=== PATIENT | male | born 1950 | race Caucasian/White ===

== ENCOUNTER 2016-12-30 11:48 | Day surgery (SDC) | payer BC, OTHER ==
[~2016-12-30 11:48] MED LIST: ACETAMINOPHEN 325 MG TAB PO PRN; ASPIRIN EC 325 MG TAB PO ONE; DIAZEPAM 5 MG TAB PO ONE; FAMOTIDINE 20 MG TAB PO ONE; NITROGLYCERIN 0.4 MG BTL SL PRN; NS 1,000 ML IV SCH; TEMAZEPAM 15 MG CAP PO PRN; diphenhydrAMINE 25 MG CAP PO ONE
[2016-12-30] MEDS ORDERED: FAMOTIDINE 20 MG TAB ONE (12:04)
[2016-12-30] MEDS ORDERED: ASPIRIN EC 325 MG TAB PO ONE (12:04)
[2016-12-30] MEDS ORDERED: DIAZEPAM 5 MG TAB ONE (12:04)
[2016-12-30] MEDS ORDERED: diphenhydrAMINE 25 MG CAP PO ONE (12:04)
--- NOTE | 2016-12-30 12:11 | CPEKG ---
Heart Rate: 68 RR Interval: 882 P-R Interval: 184 QRSD Interval: 82 QT Interval: 428 QTC Interval: 456 P [place]: 60 QRS [place]: 17 T Wave [place]: 8 EKG Severity - OTHERWISE NORMAL ECG - EKG Impression: SINUS RHYTHM EKG Impression: VENTRICULAR PREMATURE COMPLEX Electronically Signed By: William Mcrae 30-Dec-2016 18:35:45
[2016-12-30 12:25] LABS: % IMMATURE GRANULYOCYTES 0.3 % (0.0-1.1); ABSOLUTE IMMATURE GRANULOCYTES 0.03 10^3/uL (0.00-0.10); ADD DIFF? NO; ADD MORPH? NO; ADD SCAN? NO; ATYPICAL LYMPHOCYTE FLAG 40 (0-99); FRAGMENT RBC FLAG 0 (0-99); HEMATOCRIT 46.2 % (40.0-51.0); HEMOGLOBIN 15.6 g/dL (13.7-17.5); LEFT SHIFT FLG 0 (0-99); LIPEMIA HEMOLYSIS FLAG 90 (0-99); MEAN CELL HEMOGLOBIN 28.5 pg (27.9-34.1); MEAN CELL HEMOGLOBIN CONCENTR. 33.8 g/dL (32.4-36.7); MEAN CELL VOLUME 84.3 fL (81.5-99.8); MEAN PLATELET VOLUME 10.3 fL (8.7-11.7); PLATELET CLUMPS FLAG 30 (0-99); PLATELET COUNT 211 10^3/uL (150-400); RED BLOOD CELL COUNT 5.48 10^6/uL (4.40-6.38); RED CELL DISTRIBUTION WIDTH 14.8 % (11.5-15.2)
[2016-12-30 12:34] LABS: INR 0.99 (0.83-1.16)
[2016-12-30 12:35] LABS: APTT 26.9 SEC (23.0-38.0)
[2016-12-30 12:41] LABS: ALANINE AMINOTRANSFERASE 49 IU/L (21-72); ALBUMIN 4.5 g/dL (3.5-5.0); ALKALINE PHOSPHATASE 98 IU/L (38-126); ANION GAP 14 mEq/L (8-16); ASPARTATE AMINOTRANSFERASE 30 IU/L (17-59); BILIRUBIN,TOTAL 0.8 mg/dL (0.1-1.4); CALCIUM 9.7 mg/dL (8.5-10.4); CARBON DIOXIDE 20 mEq/l (22-31); CHLORIDE 108 mEq/L (97-110); CHOLESTEROL 132 mg/dL (140-220); CHOLESTEROL/HDL RATIO 2.93 RATIO (1.00-4.97); GLOMERULAR FILTRATION RATE > 60; GLUCOSE 89 mg/dL (70-100); HIGH DENSITY LIPOPROTEIN 45 mg/dL (40-65); LDL/HDL RATIO 1.69 RATIO (1.00-3.64); LOW DENSITY LIPOPROTEIN 76 mg/dL (80-100); MAGNESIUM 1.9 mg/dL (1.6-2.3); NON-HIGH DENSITY LIPOPROTEIN 87 mg/dL (90-129); POTASSIUM 4.5 mEq/L (3.5-5.2); SODIUM 142 mEq/L (134-144); TOTAL PROTEIN 7.4 g/dL (6.3-8.2); TRIGLYCERIDE 56 mg/dL (40-150); VERY LOW DENSITY LIPOPROTEINS 11 mg/dL (8-25)
[2016-12-30] MEDS ORDERED: fentaNYL 100 MCG/2 ML INJ ONE (12:55)
[2016-12-30] MEDS ORDERED: LIDOCAINE 1% 300 MG/30 ML SDV ONE (12:55)
[2016-12-30] MEDS ORDERED: MIDAZOLAM 2 MG/2 ML VIAL ONE (12:55)
[2016-12-30] MEDS ORDERED: HEPARIN 10,000 UNIT/10 ML MDV ONE (12:56)
[2016-12-30] MEDS ORDERED: VERAPAMIL 5 MG/2 ML VIAL ONE (12:56)
[2016-12-30] MEDS ORDERED: IOPAMIDOL (ISOVUE-370) 150 ML BTL IV ONE (12:56)
--- NOTE | 2016-12-30 13:01 | PDHPUP ---
History & Physical Update H&P update statement: This history and physical update is based on an assessment of the patient which was completed after admission or registration (within 24 hours), but prior to the surgery/procedure. H&P update: H&P reviewed & patient examined (Donis test on the right wrist normal at less than 5 sec.), no change in patient's condition since H&P completed
--- NOTE | 2016-12-30 13:02 | PDPROPOC ---
Sedation Plan of Care Sedation Plan of Care: vital signs stable, mental status noted, patient educated of risks, benefits, alternatives, patient can tolerate sedation ASA Classification: ASA 1 Planned drugs: fentanyl, midazolam Mallampati Score: Class 1 Mallampati Reference Image: Patient passed 3-3-2 rule?: Yes
[2016-12-30] MEDS ORDERED: ONDANSETRON 4 MG/2 ML VIAL IVP PRN (13:59)
[2016-12-30] MEDS ORDERED: HYDROCODONE/APAP 5/325 TAB PO PRN (13:59)
[2016-12-30] MEDS ORDERED: ATROPINE SULFATE 1 MG/10 ML SYR IVP PRN (13:59)
--- NOTE | 2016-12-30 14:07 | PDDXCAT ---
Diagnostic Cath Note - . Date: 12/30/16 Joint Terminal Attack Controller: Mazin Indication: other (Chest pain suggestive of angina and nuclear stress test with exercise induced ECG changes but normal nuclear perfusion images; CAD risk factors including hypertension, hyperlipidemia, and family history.) - Procedure Access: right wrist Procedure: left heart catheterization, coronary angiography, left ventriculogram - Materials Left Heart Cath size: 5F Left Heart Cath materials: other ([employer] and [employer]) - Findings-Left Heart Catheterization LM: Normal. LAD: Trace luminal irregularities. LCX: Normal. RCA: Trace luminal irregularities. LVEF: 65% Wall motion: Normal. Complications: None Estimated blood loss: <50ml Closure method: TR Band Assessment: 1) Normal LV systolic function. 2) Minimal, early coronary atherosclerosis.
== END 2016-12-30 17:00 | disposition home or self-care (01) ==
LOC: FCATH 11:48
PROVIDERS: ATTEND Internal Medicine Interventional Cardiology
DX: R07.9 Chest pain, unspecified (principal); I10 Essential (primary) hypertension; E78.5 Hyperlipidemia, unspecified; Z82.49 Family history of ischemic heart disease and other diseases of the circulatory system; R94.39 Abnormal result of other cardiovascular function study
CPT/HCPCS: 93005; 93458; C1769; J1644; J2250; J3010; Q9967

== ENCOUNTER 2017-01-01 11:18 | Observation (INO) | payer OTHER ==
--- NOTE | 2017-01-01 11:35 | EDPHY ---
H & P Stated Complaint: fell off horse onto R side, R hip, rib and lbp Time Seen by Provider: 01/01/17 11:33 HPI/ROS: CHIEF COMPLAINT: Limited trauma activation, fall from horse, rib pain, back pain HISTORY OF PRESENT ILLNESS: The patient presents to the ED is limited trauma activation. He was a thrown from a horse prior to arrival. The patient presents with complaints of acute right rib pain and thoracolumbar pain. The patient has some mild discomfort in his right hip. The patient did not strike his head or lose consciousness. He has no complaints of headache or neck pain. The patient complains of mild right upper quadrant abdominal pain. The patient denies any upper extremity pain or decreased range of motion. The patient is not anticoagulated. He does have a past medical history significant for hypertension. REVIEW OF SYSTEMS: A comprehensive 10 point review of systems is otherwise negative aside from elements mentioned in the history of present illness. Source: Patient - Personal History Current Tetanus/Diphtheria Vaccine: Unsure Current Tetanus Diphtheria and Acellular Pertussis (TDAP): Unsure - Medical/Surgical History Hx Asthma: No Hx Chronic Respiratory Disease: No Hx Diabetes: No Hx Cardiac Disease: No Hx Renal Disease: No Hx Cirrhosis: No Hx Alcoholism: No Hx HIV/AIDS: No Hx Splenectomy or Spleen Trauma: No Other PMH: htn, gerd - Social History Smoking Status: Former smoker - Physical Exam Exam: General Appearance: Alert, no distress Head: Atraumatic Eyes: Pupils equal, round, reactive ENT, Mouth: No hemotympanum, no oral trauma Neck: Nontender, trachea midline Respiratory: Tenderness to palpation right anterior chest wall, no subcutaneous emphysema, lungs clear to auscultation bilaterally Cardiovascular: Regular rate and rhythm Abdomen: Tenderness to palpation right upper quadrant, pelvis stable Skin: No lacerations, No abrasion Back: Tenderness to palpation in the thoracolumbar spine midline and right of midline Extremities: Nontender, full range of motion Neurological: A&Ox3, normal motor function, normal sensory exam, GCS 15 Constitutional: Initial Vital Signs Temperature (C) 36.6 C 01/01/17 11:27 Heart Rate 70 01/01/17 11:27 Respiratory Rate 18 01/01/17 11:27 Blood Pressure 143/86 H 01/01/17 11:27 O2 Sat (%) 96 01/01/17 11:27 O2 Delivery Mode Room Air Allergies/Adverse Reactions: No Allergies [NKDA] Allergy (Verified 12/24/16 07:41) Home Medications: Medication Instructions Recorded Cetirizine [ZyrTEC 10 mg (*)] 10 mg PO DAILY 12/24/16 Fluticasone Nasal [Flonase Nasal 1 sprays NASAL DAILY PRN 12/24/16 [place]] Herbals/Supplements -Info Only 1 each PO DAILY 12/24/16 Nebivolol HCl [Bystolic 5 mg (*)] 5 mg PO DAILY 12/24/16 Omeprazole [Prilosec 20 mg] 20 mg PO DAILY 12/24/16 Valsartan [Diovan (*)] 160 mg PO DAILY 12/24/16 amLODIPine BESYLATE [Norvasc 10 mg 10 mg PO DAILY 12/24/16 (*)] Atorvastatin Calcium [Lipitor 40 60 mg PO DAILY #0 12/30/16 mg (*)] Hydrocodone/APAP 5/325 [Shiro 1 - 2 each PO Q6 PRN #20 tab 01/01/17 5/325] Medical Decision Making - Diagnostics Imaging Results: Imaging Impressions Abdomen CT 01/01/17 11:32 Impression: Normal. 2. CT Scan of the Abdomen and Pelvis (With Contrast- dual phase extended study) , 12:16 Clinical Indications: Trauma. Technique: 90 mL of Isovue 300 were given intravenously by machine power injection. Multidetector helical CT imaging was performed from the diaphragm to the symphysis pubis during the arterial phase, and then repeated during the venous phase. Dose reduction techniques were utilized. Findings: Abdomen: The liver and spleen are normal without evidence of laceration or subcapsular hematoma formation. The gallbladder and pancreas look normal. The kidneys do not show evidence for laceration, cortical contusion, or obstruction. There is no free air or free fluid. There is no evidence for intra -abdominal or intrapelvic active arterial or delayed venous bleeding. Pelvis: There is midline posterior hematoma and edema overlying the low lumbar region. There is a small amount of active bleeding occurring in this area posterior to the L5 spinous process. No pelvic or L5 fracture is identified. There does appear to be a right L5-S1 disk protrusion. The urinary bladder is unremarkable. No free fluid in the pelvis. There is diverticulosis of the sigmoid colon without evidence of diverticulitis. Bone window evaluation: No fracture is identified. Impression: 1. Midline posterior pelvic subcutaneous hemorrhage with active bleeding. 2. Right L5-S1 disk protrusion of unknown chronicity. 3. No intra-abdominal or intrapelvic posttraumatic pathology identified. Results called and discussed with Lamont Caba, at 01/01/2017 12:46 Final results are concordant with the preliminary interpretation. General information for patients regarding this examination can be found at [facility]. If you have questions or comments about this report, please contact me at (hospital) or [phone] ([facility]). Chest CT 01/01/17 11:[address]: [address] Scan of the Abdomen and Pelvis (With Contrast- dual phase extended study) , 12:16 Clinical Indications: Trauma. Technique: 90 mL of Isovue 300 were given intravenously by machine power injection. Multidetector helical CT imaging was performed from the diaphragm to the symphysis pubis during the arterial phase, and then repeated during the venous phase. Dose reduction techniques were utilized. Findings: Abdomen: The liver and spleen are normal without evidence of laceration or subcapsular hematoma formation. The gallbladder and pancreas look normal. The kidneys do not show evidence for laceration, cortical contusion, or obstruction. There is no free air or free fluid. There is no evidence for intra -abdominal or intrapelvic active arterial or delayed venous bleeding. Pelvis: There is midline posterior hematoma and edema overlying the low lumbar region. There is a small amount of active bleeding occurring in this area posterior to the L5 spinous process. No pelvic or L5 fracture is identified. There does appear to be a right L5-S1 disk protrusion. The urinary bladder is unremarkable. No free fluid in the pelvis. There is diverticulosis of the sigmoid colon without evidence of diverticulitis. Bone window evaluation: No fracture is identified. Impression: 1. Midline posterior pelvic subcutaneous hemorrhage with active bleeding. 2. Right L5-S1 disk protrusion of unknown chronicity. 3. No intra-abdominal or intrapelvic posttraumatic pathology identified. Results called and discussed with Lamont Caba, at 01/01/2017 12:46 Final results are concordant with the preliminary interpretation. General information for patients regarding this examination can be found at [facility]. If you have questions or comments about this report, please contact me at (hospital) or [phone] (cell). Lumbar Spine CT 01/01/17 11:32 Impression: No fracture. Likely prior surgical fusion of L5-S1. Suspect large disk protrusion at L5-S1, of unknown chronicity. Results called and discussed with Lamont Caba, at 01/01/2017 12:50 General information for patients regarding this examination can be found at [facility]. If you have questions or comments about this report, please contact me at (hospital) or [phone] (cell). Thoracic Spine CT 01/01/17 11:32 Impression: Nothing acute identified. Results called and discussed with Lamont Caba, at 01/01/2017 12:53 General information for patients regarding this examination can be found at [facility]. If you have questions or comments about this report, please contact me at [phone] (hospital) or [phone] (cell). ED Course/Re-evaluation: The patient presents to the ED is limited trauma activation. The patient was thrown from a horse landing on his back. The patient presents with stable vital signs. He was noted to have tenderness in his lumbar spine on examination. He also had some right-sided rib tenderness. The patient had an IV established. His initial GCS is 15. I have cleared his cervical spine via nexus criteria. He has no midline cervical spine tenderness. Patient was taken for a stat CT scan of the chest abdomen pelvis which demonstrates no evidence of an intrathoracic or intra-abdominal injury. The patient does have a small hematoma noted in his lumbar musculature. An incidental finding a L4-5 disc bulge was appreciated. Patient underwent serial examinations in the emergency department. The patient has no symptoms of an L4-5 radiculopathy on his current exam. The patient has been informed of the presence of a hematoma which is nonsurgical in nature and should likely tamponade and resolve on its own. The patient's laboratory studies are otherwise unremarkable. The patient underwent multiple examinations in the ED. Every time he attempted to ambulate he developed a the vasovagal type presyncope. The patient received additional IV fluids. He received additional IV narcotic medications. The patient is unable to safely ambulate and will require admission to the hospital. The patient will be admitted to the trauma service. I spoke with the on-call trauma surgeon Dr. Hernandez at 3:00 p.m.. Differential Diagnosis: Differential diagnosis considered includes thoracic spine fracture, lumbar spine fracture, rib fracture, pneumothorax, intra-abdominal hemorrhage, spinal cord injury - Data Points Laboratory Results: Laboratory Results 01/01/17 11:20 01/01/17 11:20 01/01/17 01/01/17 01/01/17 11:21 11:20 11:20 WBC RBC Hgb POC Hgb 16.3 gm/dL gm/dL (13.7-17.5) Hct POC Hct 48 % % (40-51) MCV MCH MCHC RDW Plt Count MPV Neut % (Auto) Lymph % (Auto) [place] % (Auto) Eos % (Auto) Baso % (Auto) Nucleat RBC Rel Count Absolute Neuts (auto) Absolute Lymphs (auto) Absolute Monos (auto) Absolute Eos (auto) Absolute Basos (auto) Absolute Nucleated RBC Immature Gran % Immature Gran # PT 12.5 SEC SEC (12.0-15.0) INR 0.94 (0.83-1.16) APTT 26.7 SEC SEC (23.0-38.0) POC Sodium 141 mEq/L mEq/L (134-144) Sodium 141 mEq/L mEq/L (134-144) POC Potassium 4.0 mEq/L mEq/L (3.3-5.0) Potassium 4.1 mEq/L mEq/L (3.5-5.2) POC Chloride 104 mEq/L mEq/L (97-110) Chloride 104 mEq/L mEq/L (97-110) Carbon Dioxide 24 mEq/l mEq/l (22-31) Anion Gap 13 mEq/L mEq/L (8-16) POC BUN 20 mg/dL mg/dL (7-23) BUN 19 mg/dL mg/dL (7-23) Creatinine 1.2 mg/dL mg/dL (0.7-1.3) POC Creatinine 1.2 mg/dL mg/dL (0.7-1.3) Estimated GFR > 60 Glucose 102 mg/dL H mg/dL (70-100) POC Glucose 106 mg/dL H mg/dL (70-100) Calcium 10.3 mg/dL mg/dL (8.5-10.4) 01/01/17 11:20 WBC 8.49 10^3/uL 10^3/uL (3.80-9.50) RBC 5.28 10^6/uL 10^6/uL (4.40-6.38) Hgb 15.2 g/dL g/dL (13.7-17.5) POC Hgb Hct 43.9 % % (40.0-51.0) POC Hct MCV 83.1 fL fL (81.5-99.8) MCH 28.8 pg pg (27.9-34.1) MCHC 34.6 g/dL g/dL (32.4-36.7) RDW 14.7 % % (11.5-15.2) Plt Count 197 10^3/uL 10^3/uL (150-400) MPV 10.7 fL fL (8.7-11.7) Neut % (Auto) 49.4 % % (39.3-74.2) Lymph % (Auto) 33.6 % % (15.0-45.0) [place] % (Auto) 12.5 % % (4.5-13.0) Eos % (Auto) 3.3 % % (0.6-7.6) Baso % (Auto) 0.6 % % (0.3-1.7) Nucleat RBC Rel Count 0.0 % % (0.0-0.2) Absolute Neuts (auto) 4.20 10^3/uL 10^3/uL (1.70-6.50) Absolute Lymphs (auto) 2.85 10^3/uL 10^3/uL (1.00-3.00) Absolute Monos (auto) 1.06 10^3/uL H 10^3/uL (0.30-0.80) Absolute Eos (auto) 0.28 10^3/uL 10^3/uL (0.03-0.40) Absolute Basos (auto) 0.05 10^3/uL 10^3/uL (0.02-0.10) Absolute Nucleated RBC 0.00 10^3/uL 10^3/uL (0-0.01) Immature Gran % 0.6 % % (0.0-1.1) Immature Gran # 0.05 10^3/uL 10^3/uL (0.00-0.10) PT INR APTT POC Sodium Sodium POC Potassium Potassium POC Chloride Chloride Carbon Dioxide Anion Gap POC BUN BUN Creatinine POC Creatinine Estimated GFR Glucose POC Glucose Calcium Medications Given: Discontinued Medications Hydromorphone HCl (Dilaudid) 0.5 mg IVP EDNOW ONE Stop: 01/01/17 13:43 Last Admin: 01/01/17 13:54 Dose: 0.5 mg Sodium Chloride (Ns) 1,000 mls @ 0 mls/hr IV ONCE ONE PRN Reason: Wide Open Stop: 01/01/17 13:37 Last Admin: 01/01/17 13:40 Dose: 1,000 mls Sodium Chloride (Ns) 1,000 mls @ 0 mls/hr IV EDNOW ONE; Wide Open PRN Reason: Protocol Stop: 01/01/17 13:43 Last Admin: 01/01/17 13:50 Dose: Not Given Ondansetron HCl (Zofran) 4 mg IVP EDNOW ONE Stop: 01/01/17 13:36 Last Admin: 01/01/17 13:41 Dose: 4 mg Oxycodone/Acetaminophen (Percocet 5/325) 1 tab PO EDNOW ONE Stop: 01/01/17 13:36 Last Admin: 01/01/17 13:43 Dose: 1 tab Point of Care Test Results: 01/01/17 11:21 POC Sodium 141 POC Potassium 4.0 POC Chloride 104 POC BUN 20 POC Creatinine 1.2 POC Glucose 106 H Departure - Departure Disposition: [facility] Inpatient Acute Clinical Impression: Traumatic hematoma of lower back Condition: Good Prescriptions: Hydrocodone/APAP 5/325 [Shiro 5/325] 1 - 2 each PO Q6 PRN #20 tab PRN Reason: for pain
[2017-01-01 11:39] LABS: % IMMATURE GRANULYOCYTES 0.6 % (0.0-1.1); ABSOLUTE IMMATURE GRANULOCYTES 0.05 10^3/uL (0.00-0.10); ADD DIFF? NO; ADD MORPH? NO; ADD SCAN? NO; ATYPICAL LYMPHOCYTE FLAG 10 (0-99); FRAGMENT RBC FLAG 0 (0-99); HEMATOCRIT 43.9 % (40.0-51.0); HEMOGLOBIN 15.2 g/dL (13.7-17.5); LEFT SHIFT FLG 0 (0-99); LIPEMIA HEMOLYSIS FLAG 90 (0-99); MEAN CELL HEMOGLOBIN 28.8 pg (27.9-34.1); MEAN CELL HEMOGLOBIN CONCENTR. 34.6 g/dL (32.4-36.7); MEAN CELL VOLUME 83.1 fL (81.5-99.8); MEAN PLATELET VOLUME 10.7 fL (8.7-11.7); PLATELET CLUMPS FLAG 0 (0-99); PLATELET COUNT 197 10^3/uL (150-400); RED BLOOD CELL COUNT 5.28 10^6/uL (4.40-6.38); RED CELL DISTRIBUTION WIDTH 14.7 % (11.5-15.2)
[2017-01-01] MEDS ORDERED: IOPAMIDOL (ISOVUE-300) 100 ML BTL ONE (11:41)
[2017-01-01 11:51] LABS: ANION GAP 13 mEq/L (8-16); CALCIUM 10.3 mg/dL (8.5-10.4); CARBON DIOXIDE 24 mEq/l (22-31); CHLORIDE 104 mEq/L (97-110); CREATININE 1.2 mg/dL (0.7-1.3); GLOMERULAR FILTRATION RATE > 60; GLUCOSE 102 mg/dL (70-100); INR 0.94 (0.83-1.16); POTASSIUM 4.1 mEq/L (3.5-5.2); PROTIME(PATIENT) 12.5 SEC (12.0-15.0); SODIUM 141 mEq/L (134-144)
[2017-01-01 11:52] LABS: APTT 26.7 SEC (23.0-38.0)
[2017-01-01] MEDS ORDERED: ONDANSETRON 4 MG/2 ML VIAL IVP ONE (13:35)
[2017-01-01] MEDS ORDERED: OXYCODONE/APAP 5/325 TAB PO ONE (13:35)
[2017-01-01] MEDS ORDERED: NS 1,000 ML IV ONE ×2 (13:36→13:42)
[2017-01-01] MEDS ORDERED: HYDROmorphONE/DILAUDID 1 MG/ML INJ IVP ONE (13:42)
[2017-01-01] MEDS ORDERED: KETOROLAC 30 MG/1 ML SDV IVP ONE (17:04)
[2017-01-01] MEDS ORDERED: ONDANSETRON 4 MG/2 ML VIAL IVP PRN (17:04)
[2017-01-01] MEDS ORDERED: KETOROLAC 15 MG/1 ML SDV IVP ONE (17:04)
[2017-01-01] MEDS ORDERED: FLUTICASONE NASAL 120 SPRAYS/16 GM MDI NS PRN (17:07)
[2017-01-01] MEDS: KETOROLAC 15 MG/1 ML SDV IVP SCH (17:34)
--- NOTE | 2017-01-01 17:43 | GCON ---
[f rep st] CONSULTATION DATE OF CONSULTATION: 01/01/2017 REASON FOR ADMISSION: Sacral hematoma. REQUESTED BY: Lamont Caba MD. HISTORY OF PRESENT ILLNESS: 66-year-old healthy male bucked from his horse earlier this afternoon. He reports, while trying to mount the horse and throw his leg over the top, the horse became out of control and bucked him off. He landed on his back. He denied loss of consciousness. He was ambulatory at the scene. He denies headache. He denies visual changes. He denies neck complaints. He denies chest pains and shortness of breath. He denies abdominal complaints. He denies upper and lower extremity tingling. ED workup disclosed a superficial sacral/buttock hematoma. He was attempted to be managed in the emergency department setting with appropriate analgesics. With trying to ambulate, the patient's pain was uncontrolled and fraught with hypotension and discomfort when trying to move. He is admitted for pain control. PAST MEDICAL HISTORY: Hypertension (cardiac catheterization last week unremarkable). PAST SURGICAL HISTORY: Vasectomy with vasovasostomy. MEDICATIONS: Amlodipine, aspirin, atorvastatin, cetirizine, fluticasone, Bystolic, Prilosec, Diovan, multiple herbal supplements, and naproxen. ALLERGIES: No known drug allergies. SOCIAL HISTORY: No significant alcohol or tobacco. He is . 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 FAMILY HISTORY: Noncontributory. REVIEW OF SYSTEMS: Unremarkable 10-point review of systems other than acute traumatic event. PHYSICAL EXAMINATION: VITAL SIGNS: T current 36.4, blood pressure 140/80, pulse 65, respirations 26. CONSTITUTIONAL: Patient is alert, comfortable, lying in bed. HEENT: Unremarkable. Scalp nontender. NECK: Cervical spine nontender. Trachea midline without crepitus. HEART: Regular without murmurs. LUNGS: Clear bilaterally. CHEST: Wall nontender without step-offs or deformities. ABDOMEN: Soft, nontender, nondistended. PELVIS: Nontender. Normal bilateral upper and lower extremities. 2+ radial and pedal pulses bilaterally. Nontender thoracic and lumbar spines. Buttock with a tense, non- expanding hematoma over the posterior midline sacrum. Skin overlying intact. Exquisite tenderness present. LABORATORY DATA: Hemoglobin 16, white count 8, platelets 200. INR 0.94. Electrolytes within reference range. CT images directly reviewed on PACS and with radiologist. CT of the chest, abdomen, and pelvis unremarkable. CT of the thoracic and lumbar spines unremarkable. Soft-tissue windows disclose a posterior midline buttock/sacral hematoma with area of blush on delayed imaging studies. L5-S1 probable old pseudoarthrosis without surrounding edema. IMPRESSION: 1. Fall from horse. 2. Superficial sacral/buttock hematoma. PLAN: Patient is being admitted for pain control. Will have Physical and Occupational therapies assess patient. When ambulatory and pain adequately controlled with oral analgesics, he can be discharged at that time. Care plan was discussed with the patient and nursing staff at bedside. All questions were entertained. /[id number]/MODL MTDD
[2017-01-01] MEDS: oxyCODONE IR 5 MG TAB PO PRN ×2 (18:37→22:55)
[2017-01-01] MEDS: DOCUSATE SODIUM 100 MG CAP PO SCH (20:28)
[2017-01-01] MEDS: DIAZEPAM 5 MG TAB PO PRN (22:55)
[2017-01-02] MEDS: KETOROLAC 15 MG/1 ML SDV IVP SCH ×3 (01:22→12:10)
[2017-01-02] MEDS: oxyCODONE IR 5 MG TAB PO PRN ×3 (04:02→14:57)
[2017-01-02] MEDS: DOCUSATE SODIUM 100 MG CAP PO SCH (08:12)
[2017-01-02] MEDS ORDERED: PANTOPRAZOLE SODIUM 40 MG TAB PO SCH (09:00)
[2017-01-02] MEDS ORDERED: CETIRIZINE 10 MG TAB PO SCH (09:00)
[2017-01-02] MEDS ORDERED: NON-FORMULARY NEW DRUG (Omeprazole [Prilosec 20 Mg] 20 MG) PO SCH (09:00)
[2017-01-02] MEDS ORDERED: NEBIVOLOL HCL 5 MG TAB PO SCH (09:00)
[2017-01-02] MEDS ORDERED: ASPIRIN EC 81 MG TAB PO SCH (09:00)
[2017-01-02] MEDS ORDERED: VALSARTAN 80 MG TAB PO SCH (09:00)
[2017-01-02] MEDS ORDERED: ATORVASTATIN CALCIUM 40 MG TAB PO SCH (09:00)
[2017-01-02] MEDS ORDERED: FLU VACC QS 2017-18 (3YR+)/PF 0.5 ML SYR (FLUARIX QUAD) IM ONE (10:00)
--- NOTE | 2017-01-02 10:12 | ASMTCMCOM ---
CM Note CM Note Notes: Chart reviewed. Patient s/p sacral hematoma after bucked from horse. Here for pain control. No needs identified. Plan home with when medically stable. CM available should needs arise. Date Signed: 01/02/2017 10:11 AM Electronically Signed By:Laila Molina RN
[2017-01-02] MEDS: DIAZEPAM 5 MG TAB PO PRN (10:48)
--- NOTE | 2017-01-02 11:04 | TRAUMAPN ---
- Problem/Surgery Performed (1) Animal-rider injured by fall from or being thrown from horse in noncollision accident Assessment/Plan: mechanism/we discussed use of helmets when riding and taking ASA tertiary survey completed (2) Hypertension Assessment/Plan: currently on multi-drug Rx with good control (3) Bradycardia Assessment/Plan: recently started on Beta blockers by Dr. Richard Retana after heart cath. will obtain repeat ECG and run by cardiology/discussed with Dr. Christos Argueta continue meds as ordered for now (4) Traumatic hematoma of lower back Assessment/Plan: no underlying fracture/hematoma reabsorbtion discussed no indications for drainage at this time Qualifiers: Encounter type: initial encounter Qualified Code(s): S30.0XXA - Contusion of lower back and pelvis, initial encounter Assessment/Plan: stable for discharge from surgical/trauma viewpoint will check ECG and discuss with cardiology Subjective: feeling a little "woozy" when getting up persistant low back pain, denies chest pain, abd pain, weakness/paresthesias Objective: Vital Signs Temp Pulse Resp BP Pulse Ox 37.0 C 61 14 131/68 H 97 01/02/17 07:33 01/02/17 10:43 01/02/17 07:33 01/02/17 10:43 01/02/17 09:13 01/01/17 01/02/17 01/03/17 05:59 05:59 05:59 Intake Total 1700 400 Output Total 500 Balance 1200 400 PT 12.5 SEC (12.0-15.0) 01/01/17 11:20 INR 0.94 (0.83-1.16) 01/01/17 11:20 - C-Spine Clearance Cervical Spine Cleared: Yes Provider who Cleared Cervical Spine: David Physical Exam - Physical Exam General Appearance: WD/WN, alert, mild distress EENT: PERRL/EOMI Neck: non-tender, supple Respiratory: chest non-tender, lungs clear Cardiac/Chest: regular rate, rhythm, bradycardia (resting heart rate currently 56/RN reports decrease in HR to 48) Peripheral Pulses: 3+: carotid (R), carotid (L), femoral (R), femoral (L), dorsalis-pedis (R), dorsalis-pedis (L) Abdomen: non-tender, soft Male Genitalia: deferred Rectal: deferred Back: Other (low back /pelvic subcutaneous hematoma) Skin: warm/dry Lymphatic: no adenopathy Extremities: non-tender Neuro/Psych: alert, normal mood/affect, oriented x 3 Time Spent w/Patient (minutes): 30
[2017-01-02 11:11] VITALS: BP 131/73; PULSE 60; RESP 16; TEMP 97.9; O2SAT 92
--- NOTE | 2017-01-02 11:24 | SOAPPROG ---
SOAP Progress Note Assessment/Plan: Assessment: This is a 65-year-old male followed as an outpatient by Dr. Retana. He has a history of hypertension, hyperlipidemia, nonobstructive CAD and tendency toward bradycardia noted on previous Holter monitoring and CardioNet monitoring. He is currently hospitalized after experiencing low back trauma after falling from a horse. It has been noted that he has a tendency toward bradycardia here with heart rates down into the high 40s when he is asleep. This is probably multifactorial. Clearly, he has a tendency toward bradycardia compound by the concomitant use of Bystolic. The narcotic analgesics that he is using for pain control certainly can be contributing to this as well. There is no indication of pathologically low heart rates that would necessitate further cardiac treatments such as implantation of a permanent pacemaker. Additionally, I do not feel that it is necessary to alter his drug regimen at the present time. I think he is stable to be discharged home. I will forward this information on to his primary spool sorter. Would like him to follow up in our office in the next 2-4 weeks. 01/02/17 11:24 Subjective: The patient was seen and examined. His chart was reviewed. He is a 66-year- old male typically followed as an outpatient by Dr. Richard Retana. He has a history of hypertension, hyperlipidemia and underwent a cardiac catheterization 3 days ago after developing an abnormal stress test that did not demonstrate any significant CAD. As an outpatient he has been treated with triple therapy for his blood pressure-amlodipine, Bystolic, valsartan. His most recent medication addition was valsartan. He typically has no symptoms of dizziness or lightheadedness. He is currently admitted to the hospital after experiencing a mechanical fall from his horse. He experienced some trauma to his low back and has been admitted for pain control. There are plans for him to go home later today. Has not been monitored on telemetry however his pulse oximetry has been monitored. During periods of time when he falls asleep it is noted that his heart rate will sometimes dip into the high 40s. There have not been any pauses. The patient states that he typically has not had any dizzy spells or lightheadedness. As an outpatient he had a Holter monitor which was performed on 10/22/2016. This demonstrated a minimum heart rate of 51 with 77 pauses of greater than 2 seconds the longest of which was 2.2 seconds in duration. He had several very short runs of SVT. He also had a 30 day CardioNet monitor on 11/13/2016. This demonstrated sinus tachycardia with no pauses identified. In reviewing his vital signs from our office his heart rates are typically in the low 60s. He did have 1 heart rate of 72 beats per minute. Objective: Vital Signs Temp Pulse Resp BP Pulse Ox 36.6 C 60 16 131/73 H 92 01/02/17 11:09 01/02/17 11:09 01/02/17 11:09 01/02/17 11:09 01/02/17 11:09 01/01/17 01/02/17 01/03/17 05:59 05:59 05:59 Intake Total 1700 400 Output Total 500 Balance 1200 400 PT 12.5 SEC (12.0-15.0) 01/01/17 11:20 INR 0.94 (0.83-1.16) 01/01/17 11:20 Physical Exam - Physical Exam General Appearance: WD/WN, no apparent distress Neck: non-tender, full range of motion Respiratory: chest non-tender, lungs clear Cardiac/Chest: regular rate, rhythm, No edema, No gallop, No JVD Peripheral Pulses: 2+: carotid (R), carotid (L) Abdomen: non-tender, soft Male Genitalia: deferred Rectal: deferred Neuro/Psych: alert, oriented x 3 ICD10 Worksheet Patient Problems: Problems Problem Status Onset Animal-rider injured by fall from or being thrown from horse in noncollision accident Acute Bradycardia Acute Hypertension Acute Traumatic hematoma of lower back Acute
--- NOTE | 2017-01-02 13:18 | CPEKG ---
Heart Rate: 60 RR Interval: 1000 P-R Interval: 172 QRSD Interval: 86 QT Interval: 432 QTC Interval: 432 P Felicity: 51 QRS Felicity: 14 T Wave Felicity: -33 EKG Severity - BORDERLINE ECG - EKG Impression: SINUS RHYTHM EKG Impression: VENTRICULAR PREMATURE COMPLEX EKG Impression: NON-SPECIFIC DIFFUSE MILD ST DEPRESSION. Electronically Signed By: Jame Bates 03-Jan-2017 11:50:23
--- NOTE | 2017-01-02 13:34 | PDDCSUM ---
Discharge Summary Discharge Summary: #[id number] Discharge summary dictated S MD Urbano, FACS
--- NOTE | 2017-01-02 14:32 | GDS ---
[f rep st] DISCHARGE SUMMARY DISCHARGE DIAGNOSES: 1. Status post fall from horse. 2. Lower back/upper gluteal hematoma without underlying fracture. 3. Vasovagal episode with syncope in the emergency room. 4. Hypertension. 5. Hyperlipidemia. CONSULTATIONS DURING THIS HOSPITALIZATION: Dr. Phoenix Argueta from cardiology. HOSPITAL COURSE: For details of admission history and physical, please see dictated summary by Dr. Romina swartz. The patient was brought to the emergency room after being unseated from a horse, landing in an a david that was filled with sand. He had low back pain and was evaluated in the emergency room with CT . No fractures were identified; however, the patient was clinically noted to have a fairly large hem atoma. He had been taking aspirin. He was cleared for discharge, but became vagal in the emergency room with a drop in his blood pressure into the 80s and was admitted for observation. He was placed on telemetry and continuous pulse oximetry. He was admitted by Dr. Neno Hernandez. He was observed ove rnight and remained hemodynamically stable. The RN noted a drop in his heart rate into the mid 40s, and Cardiology was consulted. Dr. Phoenix Argueta saw the patient, reviewed his prior workup and cleare d him for discharge home. An EKG was performed, which showed some inferior lead T-wave abnormalities , but no acute changes, and a single PVC on the tracing. 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 He will resume his prior medications including Flonase 1 spray twice daily, Diovan 160 mg p.o. daily, Prilosec 20 mg p.o. daily, Zyrtec 10 mg p.o. daily, Norvasc 10 mg p.o. daily, Byst olic 5 mg p.o. daily, atorvastatin (Lipitor) 40 mg p.o. daily, enteric-coated aspirin 81 mg p.o. ramone y, and Naprosyn 220 mg p.o. daily p.r.n. In addition, patient was given prescription for Valium 5 mg to be taken 1-2 q.6 hours p.r.n. back spasms, #14; oxycodone IR 5-15 mg q.3 hours p.r.n. pain, #30; and docusate sodium 100 mg p.o. twice daily. /[id number]/MODL
--- NOTE | 2017-01-03 16:39 | ASDISCHSUM ---
Discharge Information Plan Status:Home with No Needs Medically Cleared to Leave:01/01/2017 Discharge Date:01/02/2017 04:58 PM CM D/C Disposition:Home, Routine, Self-Care ADT D/C Disposition:Home, Routine, Self-Care Projected Discharge Date:01/02/2017 12:00 AM Transportation at D/C: Discharge Delay Reason: Follow-Up Date:01/02/2017 12:00 AM Discharge Slot: Final Diagnosis: Placement Information Patient Contact Information Contact Name:TYRA Relationship: Address:[address] Work Phone: City:[place] Alternate Phone: [facility]/Zip Code:[place] [address] Email: Financial Information Financial Class:HMO and PPO Plans Primary Plan Desc:[employer] PPO Primary Plan Number:[id number] Secondary Plan Desc: Secondary Plan Number: Assessment Information LACE LACE Length of stay for Answers: Less than 1 day current admission Acuity / Level of Care Answers: Was the patient admitted to hospital via the emergency department? Yes: Emergency dept visits in Answers: 1 last 6 months Score: 4 Date Signed: 01/01/2017 01:01 PM Electronically Signed By:Davi Conley LCSW [facility] CM Progress Note CM Note CM Note Notes: Chart reviewed. Patient s/p sacral hematoma after bucked from horse. Here for pain control. No needs identified. Plan home with when medically stable. CM available should needs arise. Date Signed: 01/02/2017 10:11 AM Electronically Signed By:Laila Molina RN Case Management Discharge Plan Note Case Management Discharge Discharge Order Complete? Answers: Yes Patient to Obtain Answers: via Family Medications Transportation Arranged Answers: Family/Friends Family Notified Answers: Yes Discharge Comments Notes: Patient to dc home independent Date Signed: 01/02/2017 04:17 PM Electronically Signed By:Laila Molina RN Intervention Information
== END 2017-01-02 16:58 | disposition home or self-care (01) ==
LOC: EDUNIT# → F3E 15:40
PROVIDERS: ADMIT Surgery; ATTEND Surgery
DX: R55 Syncope and collapse (principal); S30.0XXA Contusion of lower back and pelvis, initial encounter; V80.010A Animal-rider injured by fall from or being thrown from horse in noncollision accident, initial encounter; Y93.52 Activity, horseback riding; Y92.89 Other specified places as the place of occurrence of the external cause; Y99.8 Other external cause status; I10 Essential (primary) hypertension; E78.5 Hyperlipidemia, unspecified; Z23 Encounter for immunization
CPT/HCPCS: 71260; 72129; 72132; 74177; 90471; 93005; 96361; 96374; 96375; 97161; 97165; 99285; G0378; 82947-QW; G0008; J1170; J1885; J2405; Q9967